=== PATIENT | female | born 1975 | race Caucasian/White ===

== ENCOUNTER 2018-05-10 16:49 | Outpatient (CLI) | payer MEDICAID ==
[2018-05-10 17:32] LABS: APPEARANCE,URINE SLIGHTLY-CLOUDY; BILIRUBIN,URINE NEGATIVE (NEGATIVE); COLOR,URINE YELLOW; GLUCOSE, URINE NEGATIVE (NEGATIVE); KETONES,URINE NEGATIVE (NEGATIVE); LEUKOCYTE ESTERASE,URINE NEGATIVE (NEGATIVE); NITRITE,URINE NEGATIVE (NEGATIVE); PROTEIN,URINE NEGATIVE (NEGATIVE); URINE SPECIFIC GRAVITY 1.009; UROBILINOGEN,URINE NEGATIVE mg/dL (<2.0)
[2018-05-10 17:50] LABS: URINE AMPHETAMINES SCREEN NEGATIVE; URINE BARBITURATES SCREEN NEGATIVE; URINE BENZODIAZEPINES SCREEN NEGATIVE; URINE COCAINE SCREEN NEGATIVE; URINE MARIJUANA (THC) SCREEN NEGATIVE; URINE METHADONE SCREEN NEGATIVE; URINE PHENCYCLIDINE SCREEN NEGATIVE
[2018-05-10 17:51] LABS: ABSOLUTE EOSINOPHILS # (AUTO) 0.1 10^3/uL (0.0-0.6); ABSOLUTE LYMPHOCYTES (AUTO) 1.6 10^3/uL (0.5-4.7); ABSOLUTE MONOCYTES (AUTO) 0.8 10^3/uL (0.1-1.4); ABSOLUTE NEUT (AUTO) 7.6 10^3/uL (1.7-8.2); BASOPHILS % (AUTO) 0.5 % (0-2); EOSINOPHILS % (AUTO) 1.3 % (0-6); HEMATOCRIT 31.3 % (36.0-47.0); HEMOGLOBIN 9.9 g/dL (12.0-15.5); LYMPHOCYTES % (AUTO) 15.8 % (13-45); MEAN CORPUSCULAR HEMOGLOBIN 20.6 pg (27.0-33.4); MEAN CORPUSCULAR HGB CONC 31.8 g/dL (32.0-36.0); MEAN CORPUSCULAR VOLUME 65 fl (80-97); PLATELET COUNT 209 10^3/uL (150-450); RED BLOOD COUNT 4.83 10^6/uL (3.72-5.28); RED CELL DISTRIBUTION WIDTH 18.9 % (11.5-14.0); SEGMENTED NEUTROPHILS % (AUTO) 74.4 % (42-78); TOTAL CELLS COUNTED % (AUTO) 100 %; WHITE BLOOD COUNT 10.3 10^3/uL (4.0-10.5)
[2018-05-10 17:58] LABS: UR PRO/CREAT RATIO RESULT 0.3 mg/mg (0.0-0.2); URINE CREATININE 44.6 mg/dL (15-278); URINE PROTEIN 12.9 mg/dL (<12)
[2018-05-10 18:13] LABS: ALANINE AMINOTRANSFERASE 23 U/L (9-52); ALBUMIN 3.3 g/dL (3.5-5.0); ALKALINE PHOSPHATASE 108 U/L (38-126); ANION GAP 11 (5-19); ASPARTATE AMINO TRANSFERASE 22 U/L (14-36); BILIRUBIN,DIRECT 0.2 mg/dL (0.0-0.4); BILIRUBIN,TOTAL 0.9 mg/dL (0.2-1.3); BLOOD UREA NITROGEN 5 mg/dL (7-20); CALCIUM 8.8 mg/dL (8.4-10.2); CARBON DIOXIDE 21 mmol/L (22-30); CHLORIDE 107 mmol/L (98-107); GLUCOSE 69 mg/dL (75-110); POTASSIUM 4.3 mmol/L (3.6-5.0); SODIUM 138.7 mmol/L (137-145); TOTAL PROTEIN 6.6 g/dL (6.3-8.2)
[2018-05-10 18:17] LABS: HYPOCHROMASIA 1+; PLATELET COMMENT ADEQUATE; TOXIC GRANULATION SLIGHT
--- NOTE | 2018-05-10 18:20 | Non Stress Test Report ---
Non Stress Test Datetime Report Generated by CPN: 05/10/2018 18:19 DEMOGRAPHIC EGA NST: 35.2 INDICATION Indication for Study: Ordered by Provider VITAL SIGNS RESP - NST: 15 MONITORING Monitor Explained: Monitor Explained; Test Explained; Patient Verbalized Understanding Monitor Explained Other: see flowsheet for vital signs Time on Monitor: 05/10/2018 17:17 Time off Monitor: 05/10/2018 17:37 NST Duration: 20 NST INTERVENTIONS NST Interventions: None Physician Notified NST: Dr. Mohr BABY A: [id number] BABY A Movement : Present Contraction Frequency : none FHR Baseline : 140 Accelerations : 15X15 Decelerations : None Variability : Moderate 6-25bpm NST Review: Meets Criteria for Reactive NST NST Review and Verified By : Regi Morelos [facility] NST Results: Reactive NST REPORT Report Trigger: Send Report
== END 2018-05-10 18:40 | disposition home or self-care (01) ==
LOC: LC 16:49
PROVIDERS: ATTEND Obstetrics & Gynecology Gynecology
PROC: 4A1HXCZ Monitoring of Products of Conception, Cardiac Rate, External Approach (ICD-10-PCS; principal; 2018-05-10)
DX: O14.93 Unspecified pre-eclampsia, third trimester (principal); O09.523 Supervision of elderly multigravida, third trimester; Z3A.35 35 weeks gestation of pregnancy
CPT/HCPCS: 59025; 80053; 80307; 81005; 82570; 83615; 84156; 84550; 85025

== ENCOUNTER 2018-05-22 04:58 | Inpatient (IN) | payer MEDICAID ==
[2018-05-21 12:37] LABS: ABSOLUTE EOSINOPHILS # (AUTO) 0.1 10^3/uL (0.0-0.6); ABSOLUTE LYMPHOCYTES (AUTO) 2.1 10^3/uL (0.5-4.7); ABSOLUTE MONOCYTES (AUTO) 0.8 10^3/uL (0.1-1.4); ABSOLUTE NEUT (AUTO) 7.7 10^3/uL (1.7-8.2); BASOPHILS % (AUTO) 0.4 % (0-2); EOSINOPHILS % (AUTO) 0.7 % (0-6); HEMATOCRIT 32.7 % (36.0-47.0); HEMOGLOBIN 10.3 g/dL (12.0-15.5); LYMPHOCYTES % (AUTO) 19.8 % (13-45); MEAN CORPUSCULAR HEMOGLOBIN 20.5 pg (27.0-33.4); MEAN CORPUSCULAR HGB CONC 31.4 g/dL (32.0-36.0); MEAN CORPUSCULAR VOLUME 65 fl (80-97); MONOCYTES % (AUTO) 7.2 % (3-13); PLATELET COUNT 224 10^3/uL (150-450); RED BLOOD COUNT 5.01 10^6/uL (3.72-5.28); RED CELL DISTRIBUTION WIDTH 19.8 % (11.5-14.0); SEGMENTED NEUTROPHILS % (AUTO) 71.9 % (42-78); TOTAL CELLS COUNTED % (AUTO) 100 %; WHITE BLOOD COUNT 10.8 10^3/uL (4.0-10.5)
[2018-05-21 12:41] LABS: APPEARANCE,URINE CLOUDY; BILIRUBIN,URINE NEGATIVE (NEGATIVE); COLOR,URINE YELLOW; GLUCOSE, URINE 150 mg/dL (NEGATIVE); KETONES,URINE TRACE mg/dL (NEGATIVE); LEUKOCYTE ESTERASE,URINE TRACE (NEGATIVE); NITRITE,URINE NEGATIVE (NEGATIVE); PROTEIN,URINE 30 mg/dL (NEGATIVE); URINE SPECIFIC GRAVITY 1.021; UROBILINOGEN,URINE NEGATIVE mg/dL (<2.0)
[2018-05-21 12:54] LABS: URINE AMPHETAMINES SCREEN NEGATIVE; URINE BARBITURATES SCREEN NEGATIVE; URINE BENZODIAZEPINES SCREEN NEGATIVE; URINE COCAINE SCREEN NEGATIVE; URINE MARIJUANA (THC) SCREEN NEGATIVE; URINE METHADONE SCREEN NEGATIVE; URINE PHENCYCLIDINE SCREEN NEGATIVE
[2018-05-22] MEDS ORDERED: LACTATED RINGERS 1000 ML IV PRN (05:00)
[2018-05-22] MEDS ORDERED: CEFAZOLIN 2 GM/D5W RTU 2 GM/50 ML RTUPB IV PRN (05:00)
[2018-05-22] MEDS ORDERED: RINGERS SOLUTION,LACTATED 1,500 ML IV PRN (05:00)
[2018-05-22] MEDS ORDERED: LIDOCAINE 0.5% INJ-PF (5 MG/ML) 50 ML SDV SUBCUT PRN (05:00)
[2018-05-22] MEDS ORDERED: AZITHROMYCIN INJ 500 MG VIAL IV ONE (08:10)
[2018-05-22] MEDS ORDERED: CEFAZOLIN 1 GM/D5W RTU 1 GM/50 ML RTUPB IV ONE (08:11)
[2018-05-22] MEDS ORDERED: FENTANYL CITRATE INJ/PF 100 MCG/2 ML AMPUL ONE (08:18)
[2018-05-22] MEDS ORDERED: OXYTOCIN 10 UNIT/ML VIAL ONE (08:18)
[2018-05-22] MEDS ORDERED: BUPIVACAINE HCL/DEX-WATER/PF 15 MG/2 ML AMPULE ONE (08:18)
[2018-05-22] MEDS ORDERED: MIDAZOLAM 2 MG/2 ML INJ ONE (08:19)
[2018-05-22] MEDS ORDERED: DIPHENHYDRAMINE HCL 50 MG/ML VIAL ONE (08:19)
[2018-05-22] MEDS ORDERED: FAMOTIDINE INJ/PF 20 MG/2 ML SDV IV ONE (08:19)
[2018-05-22] MEDS ORDERED: ACETAMINOPHEN 1,000 MG/100 ML RTUPB IV ONE (08:19)
[2018-05-22] MEDS ORDERED: EPHEDRINE SULFATE INJ 50 MG/1 ML AMPULE ONE (08:19)
[2018-05-22] MEDS ORDERED: OXYTOCIN/NORMAL SALINE 20 UNIT/1,000 ML RTUINJ ONE (08:19)
[2018-05-22] MEDS ORDERED: OXYCODONE-ACETAMINOPHEN 5-325 MG TABLET PO PRN ×2 (09:00)
[2018-05-22] MEDS ORDERED: DIPHENHYDRAMINE HCL 50 MG/ML VIAL IV PRN (09:00)
[2018-05-22] MEDS ORDERED: FENTANYL CITRATE INJ/PF 100 MCG/2 ML AMPUL IV PRN ×3 (09:00)
[2018-05-22] MEDS ORDERED: MEPERIDINE HCL/PF INJ 25 MG/1 ML DISP.SYRIN IV PRN (09:00)
[2018-05-22] MEDS ORDERED: PROMETHAZINE HCL INJ 25 MG/1 ML VIAL IV PRN ×3 (09:00→09:11)
[2018-05-22] MEDS ORDERED: MORPHINE SULFATE 10 MG/ML INJ IV PRN (09:00)
[2018-05-22] MEDS ORDERED: ACETAMINOPHEN 1,000 MG/100 ML RTUPB IV PRN (09:11)
[2018-05-22] MEDS ORDERED: OXYTOCIN/NORMAL SALINE 20 UNIT/1,000 ML RTUINJ IV PRN (09:11)
[2018-05-22] MEDS ORDERED: DIPH/PERTUSS(ACELL)/TETANUS VAC/PF 0.5 ML SYR (>=10YO) IM PRN (09:11)
[2018-05-22] MEDS ORDERED: MORPHINE SULFATE 10 MG/ML INJ IM PRN (09:11)
[2018-05-22] MEDS ORDERED: ACETAMINOPHEN 325 MG TABLET PO PRN (09:11)
[2018-05-22] MEDS ORDERED: MEASLES,MUMPS&RUBELLA VACC/PF 0.5 ML VIAL SUBCUT PRN (09:11)
[2018-05-22] MEDS ORDERED: SIMETHICONE 80 MG TAB.CHEW PO PRN (09:11)
--- NOTE | 2018-05-22 09:11 | PDOC DELIVERY SUMMARY ---
Delivery Summary - Maternal Hx : III Hx # Term Pregnancies: 3 Risk Factors: Induced HTN Ruptured Membranes: AROM Fluids: Clear - Delivery Labor: Not In Labor Heart Rate Monitoring: Done Pre-Operatively Uterine Contraction Monitoring: External Support Person Present: Yes : Scheduled Nuchal Cord: No - Medications Type of Anesthesia:: Spinal
--- NOTE | 2018-05-22 10:00 | OPERATIVE REPORT E ---
Operative Report NAME: BEST ROSARIO : 1975 AGE: 43Y DATE OF SURGERY: 05/22/2018 ROOM: 227 PREOPERATIVE DIAGNOSES: 1. IUP at 37 weeks with chronic hypertension and recommendation delivery at 37 weeks. 2. Desires sterilization. POSTOPERATIVE DIAGNOSES: 1. IUP at 37 weeks with chronic hypertension and recommendation delivery at 37 weeks. 2. Desires sterilization. PROCEDURE: Repeat low transverse , delivery of a viable female . Apgars and weight are pending. SURGEON: Kerri FISCHER M.D. ESTIMATED BLOOD LOSS: Less than 1000 mL. TISSUE REMOVED OR ALTERED: Placenta. DESCRIPTION OF PROCEDURE: The patient was placed in the supine position, rolled on her right side, prepped and draped in sterile fashion. A Pfannenstiel incision was made through an existing Pfannenstiel eschar. The excision extended through to the subcutaneous tissue and fascia with sharp dissection. Fascia was sharply divided. Rectus muscle was bluntly and sharply divided. Parietal peritoneum was entered with sharp dissection. Uterus nicked in the midline and extended bilaterally with blunt dissection. Infant was then delivered through the uterine and abdominal incision. Nose and mouth suctioned with a bulb syringe. Cord was clamped. The infant was passed from the table. The uterus was closed using 0 Vicryl running stitch and a second imbricating the first layer. Several areas of bleeding were noted and controlled with multiple figure of eight sutures of 0 Vicryl. The right fallopian tube was then banded in the mid portion using Filshie clips and banded on the left using Filshie clips. The tubes were identified through the fimbria prior to and after banding. The incision was noted and the fascia closed with 0 Vicryl and skin was closed subcu with absorbable devi. Her urine remained clear throughout the procedure. She was taken to recovery in good condition. Infant then went to nursery in good condition. DICTATING PHYSICIAN: Kerri FISCHER M.D. [id number] PHY#: [id number] ID: [id number] JOB#: [id number] ACCT: [id number] cc:Kerri FISCHER M.D. > [facility]
[2018-05-22] MEDS: OXYCODONE-ACETAMINOPHEN 5-325 MG TABLET PO PRN ×3 (12:11→22:07)
[2018-05-22] MEDS: KETOROLAC TROMETHAMINE INJ/PF 30 MG/1 ML SDV IV SCH ×2 (13:40→22:06)
[2018-05-22] MEDS ORDERED: KETOROLAC TROMETHAMINE 60 MG/2 ML SDV ONE (14:43)
[2018-05-22] MEDS ORDERED: ONDANSETRON HCL INJ/PF 4 MG/2 ML SDV ONE (14:43)
[2018-05-22] MEDS: NORMAL SALINE 1000 ML 1,000 ML IV PRN ×2 (16:30→22:07)
[2018-05-22] MEDS: DOCUSATE SODIUM 100 MG CAPSULE PO SCH ×2 (17:28)
[2018-05-22] MEDS: PRENATAL VITAMIN W DHA CAPSULE PO SCH (17:29)
[2018-05-23] MEDS: OXYCODONE-ACETAMINOPHEN 5-325 MG TABLET PO PRN ×3 (04:04→20:48)
[2018-05-23] MEDS: KETOROLAC TROMETHAMINE INJ/PF 30 MG/1 ML SDV IV SCH (06:03)
[2018-05-23 06:35] LABS: HEMATOCRIT 24.2 % (36.0-47.0); MEAN CORPUSCULAR HEMOGLOBIN 20.4 pg (27.0-33.4); MEAN CORPUSCULAR HGB CONC 31.1 g/dL (32.0-36.0); MEAN CORPUSCULAR VOLUME 66 fl (80-97); PLATELET COUNT 171 10^3/uL (150-450); RED BLOOD COUNT 3.68 10^6/uL (3.72-5.28); RED CELL DISTRIBUTION WIDTH 19.8 % (11.5-14.0); WHITE BLOOD COUNT 12.8 10^3/uL (4.0-10.5)
[2018-05-23 06:38] LABS: HEMOGLOBIN 7.5 g/dL (12.0-15.5)
[2018-05-23] MEDS: PRENATAL VITAMIN W DHA CAPSULE PO SCH (09:57)
[2018-05-23] MEDS: DOCUSATE SODIUM 100 MG CAPSULE PO SCH ×2 (09:57→17:48)
[2018-05-23] MEDS: FERROUS SULFATE 325 MG TABLET PO SCH ×2 (09:57→17:48)
[2018-05-23] MEDS ORDERED: ONDANSETRON 4 MG TAB.RAPDIS PO PRN (12:05)
[2018-05-23] MEDS: FAMOTIDINE 20 MG TABLET PO SCH ×2 (12:19→21:07)
[2018-05-23] MEDS: IBUPROFEN 800 MG TABLET PO SCH ×2 (12:57→17:48)
--- NOTE | 2018-05-23 14:58 | PDOC PROGRESS REPORT ---
Subjective-OB Progress Note for:: 05/23/18 Subjective: reports bleeding slowing, pain controlled with current meds. denies ADAMS, SOB, dizziness, near syncope. denies needs Physical Exam (OB) Vital Signs: Temp Pulse Resp BP Pulse Ox 98.0 F 79 17 136/82 H 100 05/23/18 11:51 05/23/18 11:51 05/23/18 11:51 05/23/18 11:51 05/23/18 11:51 Intake & Output 05/22/18 05/23/18 05/24/18 06:59 06:59 06:59 Intake Total 1898 Output Total 900 Balance 998 Weight 76.66 kg - Dressing Removed: No Incision: Dressing, Well Approximated - clean and intact - Abdomen Description: Soft, Round Hernia Present: No Fundal Description: Firm, Midline Fundal Height: u/u - u/2 - Abdominal Inspection: Normal Tenderness: Nontender - Extremities Calf: Normal, Nontender Objective-Diagnostic Laboratory: 05/23/18 06:02 05/23/18 06:02 WBC 12.8 H RBC 3.68 L Hgb 7.5 L D Hct 24.2 L MCV 66 L MCH 20.4 L MCHC 31.1 L RDW 19.8 H Plt Count 171 Assessment and Plan(PN) - Assessment and Plan (1) Status post repeat low transverse section Is this a current diagnosis for this admission?: Yes (2) Sterilization Is this a current diagnosis for this admission?: Yes - Time Spent with Patient Time with patient: Less than 15 minutes Medications reviewed and adjusted accordingly: Yes - Disposition Anticipated Discharge: Home Within: within 48 hours
[2018-05-24] MEDS: IBUPROFEN 800 MG TABLET PO SCH ×5 (00:12→23:59)
[2018-05-24] MEDS: OXYCODONE-ACETAMINOPHEN 5-325 MG TABLET PO PRN ×2 (05:30→19:49)
[2018-05-24 07:13] LABS: ABSOLUTE BASOPHILS # (AUTO) 0.1 10^3/uL (0.0-0.2); ABSOLUTE EOSINOPHILS # (AUTO) 0.2 10^3/uL (0.0-0.6); ABSOLUTE LYMPHOCYTES (AUTO) 1.1 10^3/uL (0.5-4.7); ABSOLUTE MONOCYTES (AUTO) 0.7 10^3/uL (0.1-1.4); ABSOLUTE NEUT (AUTO) 11.9 10^3/uL (1.7-8.2); BASOPHILS % (AUTO) 0.7 % (0-2); EOSINOPHILS % (AUTO) 1.2 % (0-6); HEMATOCRIT 23.6 % (36.0-47.0); LYMPHOCYTES % (AUTO) 7.9 % (13-45); MEAN CORPUSCULAR HEMOGLOBIN 20.2 pg (27.0-33.4); MEAN CORPUSCULAR HGB CONC 30.8 g/dL (32.0-36.0); MEAN CORPUSCULAR VOLUME 66 fl (80-97); MONOCYTES % (AUTO) 5.3 % (3-13); PLATELET COUNT 203 10^3/uL (150-450); SEGMENTED NEUTROPHILS % (AUTO) 84.9 % (42-78); TOTAL CELLS COUNTED % (AUTO) 100 %
[2018-05-24 07:30] LABS: HEMOGLOBIN 7.3 g/dL (12.0-15.5)
[2018-05-24] MEDS: DOCUSATE SODIUM 100 MG CAPSULE PO SCH ×2 (09:48→17:24)
[2018-05-24] MEDS: PRENATAL VITAMIN W DHA CAPSULE PO SCH ×2 (09:48→09:55)
[2018-05-24] MEDS: FERROUS SULFATE 325 MG TABLET PO SCH ×2 (09:48→17:24)
[2018-05-24] MEDS: FAMOTIDINE 20 MG TABLET PO SCH (09:48)
--- NOTE | 2018-05-24 10:26 | PDOC PROGRESS REPORT ---
Subjective-OB Progress Note for:: 05/24/18 Subjective: Doing well, sitting up in chair, feet swollen but better, baby in NICU, eating well, pain under control, scant lochia Physical Exam (OB) Vital Signs: Temp Pulse Resp BP Pulse Ox 98.3 F 85 18 134/89 H 100 05/24/18 08:11 05/24/18 08:11 05/24/18 08:11 05/24/18 08:11 05/24/18 08:11 Intake & Output 05/23/18 05/24/18 05/25/18 06:59 06:59 06:59 Intake Total 1898 Output Total 900 Balance 998 - PIH/Pre-Eclampsia Clonus: Negative Headache: Absent Epigastric Pain: No Visual Changes: No - Dressing Removed: No Incision: Open Closure Type: Sutures - Lochia Lochia Amount: Small 10-25 ml Lochia Color: Rubra/Red - Abdomen Description: Soft, Round Hernia Present: No Fundal Description: Firm Fundal Height: u/u - u/2 Objective-Diagnostic Laboratory: 05/24/18 06:44 05/24/18 06:44 WBC 14.0 H RBC 3.60 L Hgb 7.3 L Hct 23.6 L MCV 66 L MCH 20.2 L MCHC 30.8 L RDW 20.0 H Plt Count 203 Seg Neutrophils % 84.9 H Lymphocytes % 7.9 L Monocytes % 5.3 Eosinophils % 1.2 Basophils % 0.7 Absolute Neutrophils 11.9 H Absolute Lymphocytes 1.1 Absolute Monocytes 0.7 Absolute Eosinophils 0.2 Absolute Basophils 0.1 Assessment and Plan(PN) - Assessment and Plan (1) Gestational [-induced] hypertension without significant proteinuria , unspecified trimester Is this a current diagnosis for this admission?: Yes (2) Sterilization Is this a current diagnosis for this admission?: Yes (3) Status post repeat low transverse section Is this a current diagnosis for this admission?: Yes - Time Spent with Patient Time with patient: Less than 15 minutes Medications reviewed and adjusted accordingly: Yes - Disposition Anticipated Discharge: Home Within: within 24 hours
[2018-05-24] MEDS: NIFEDIPINE 30 MG TAB.ER.24 PO SCH (12:36)
[2018-05-25] MEDS: OXYCODONE-ACETAMINOPHEN 5-325 MG TABLET PO PRN (00:03)
[2018-05-25] MEDS: FAMOTIDINE 20 MG TABLET PO SCH ×2 (05:50→09:24)
[2018-05-25] MEDS: IBUPROFEN 800 MG TABLET PO SCH (07:27)
[2018-05-25 08:24] VITALS: BP 140/85
--- NOTE | 2018-05-25 08:32 | PDOC PROGRESS REPORT ---
Subjective-OB Progress Note for:: 05/25/18 Subjective: Doing well, sitting in chair, baby will not go home today, tolerating low H&H Physical Exam (OB) Vital Signs: Temp Pulse Resp BP Pulse Ox 98 F 89 16 140/85 H 99 05/25/18 08:24 05/25/18 08:24 05/25/18 08:24 05/25/18 08:24 05/25/18 08:24 Intake & Output 05/24/18 05/25/18 05/26/18 06:59 06:59 06:59 Intake Total 1390 Balance 1390 Weight 76.4 kg Baby 1 Female 2.466 kg - PIH/Pre-Eclampsia Clonus: Negative Headache: Absent Epigastric Pain: No Visual Changes: No - Dressing Removed: No Incision: Open Closure Type: [place] - Bilateral Tubal Ligation Dressing Removed: Yes Site: Well Approximated - Lochia Lochia Amount: Scant < 10 ml Lochia Color: Rubra/Red - Abdomen Description: Tender, Soft Hernia Present: No Fundal Description: Firm, Midline Fundal Height: u/u - u/2 Objective-Diagnostic Laboratory: 05/24/18 06:44 Assessment and Plan(PN) - Assessment and Plan (1) Gestational [-induced] hypertension without significant proteinuria , unspecified trimester Is this a current diagnosis for this admission?: Yes (2) Sterilization Is this a current diagnosis for this admission?: Yes (3) Status post repeat low transverse section Is this a current diagnosis for this admission?: Yes - Time Spent with Patient Time with patient: Less than 15 minutes Medications reviewed and adjusted accordingly: Yes - Disposition Anticipated Discharge: Home Within: Other - home today
--- NOTE | 2018-05-25 08:33 | PDOC DISCHARGE SUMMARY ---
Final Diagnosis Discharge Date: 05/25/18 - Final Diagnosis (1) Gestational [-induced] hypertension without significant proteinuria , unspecified trimester Is this a current diagnosis for this admission?: Yes (2) Sterilization Is this a current diagnosis for this admission?: Yes (3) Status post repeat low transverse section Is this a current diagnosis for this admission?: Yes Discharge Data - Discharge Medication Prescriptions: Oxycodone HCl/Acetaminophen [Percocet 5-325 mg Tablet] 2 tab PO Q4HP PRN #30 tablet PRN Reason: Ferrous Sulfate [Feosol 325 mg Tablet] 325 mg PO BID #60 tablet Ibuprofen [Motrin 800 mg Tablet] 800 mg PO Q6 #30 tablet Home Medications: Ranitidine HCl [Zantac 150 mg Tablet] 150 mg PO BID 05/21/18 Ferrous Sulfate [Feosol 325 mg Tablet] 325 mg PO BID #60 tablet 05/24/18 Ibuprofen [Motrin 800 mg Tablet] 800 mg PO Q6 #30 tablet 05/24/18 Oxycodone HCl/Acetaminophen [Percocet 5-325 mg Tablet] 2 tab PO Q4HP PRN #30 tablet 05/24/18 Vit/Dha [ Multi + Dha Capsule] 1 cap PO DAILY #0 capsule Gestational Age: 37 Reason(s) for Admission: Ceasarean Section-Repeat, PIH Procedures: NST, Ultrasound Intrapartum Procedure(s): : Low Cervical, Transverse - [place] Data Baby 1 Female Weight: 2.466 kg Home with Mother: No Complications: Yes - pneumothorax - Diagnosis Test Laboratory: Temp Pulse Resp BP Pulse Ox 98.3 F 85 18 134/89 H 100 05/24/18 08:11 05/24/18 08:11 05/24/18 08:11 05/24/18 08:11 05/24/18 08:11 05/21/18 05/21/18 05/23/18 11:40 11:45 06:02 RBC 5.01 3.68 L Hgb 10.3 L 7.5 L D Hct 32.7 L 24.2 L Urine Opiates Screen NEGATIVE 05/24/18 06:44 RBC 3.60 L Hgb 7.3 L Hct 23.6 L Urine Opiates Screen - Discharge information/Instructions Discharge Activity: Activity As Tolerated, No Lifting Over 10 Pounds, No Lifting /Push/Pulling, Non-Ambulatory Child, Pelvic Rest Discharge Diet: As Tolerated, Regular Disposition: HOME, SELF-CARE Follow up with: [facility] in: 1, Weeks
[2018-05-25] MEDS: DOCUSATE SODIUM 100 MG CAPSULE PO SCH (09:24)
[2018-05-25] MEDS: FERROUS SULFATE 325 MG TABLET PO SCH (09:24)
[2018-05-25] MEDS: NIFEDIPINE 30 MG TAB.ER.24 PO SCH (09:25)
[2018-05-25] MEDS: PRENATAL VITAMIN W DHA CAPSULE PO SCH (09:25)
== END 2018-05-25 11:54 | disposition home or self-care (01) | DRG 766 ==
LOC: 2S 04:58
PROVIDERS: ADMIT Obstetrics & Gynecology Gynecology; ATTEND Obstetrics & Gynecology Gynecology
PROC: 0UL70CZ Occlusion of Bilateral Fallopian Tubes with Extraluminal Device, Open Approach (ICD-10-PCS; 2018-05-22)
PROC: 4A1HXCZ Monitoring of Products of Conception, Cardiac Rate, External Approach (ICD-10-PCS; 2018-05-22)
PROC: 10D00Z1 Extraction of Products of Conception, Low, Open Approach (ICD-10-PCS; principal; 2018-05-22 08:00)
DX: O13.4 Gestational [pregnancy-induced] hypertension without significant proteinuria, complicating childbirth (principal); O34.211 Maternal care for low transverse scar from previous cesarean delivery; O99.02 Anemia complicating childbirth; D64.9 Anemia, unspecified; Z30.2 Encounter for sterilization; Z3A.37 37 weeks gestation of pregnancy; Z37.0 Single live birth
CPT/HCPCS: 1961; 36415; 59025; 80307; 81001; 85025; 85027; 86850; 86870; 86900; 86901; 86902; 86920; 86922; 94799; J0131; J0456; J0690; J1200; J1885; J2250; J2405; J2590; J3010; J3490; J7030; S0028; S0119

== ENCOUNTER 2018-05-25 18:35 | Outpatient (CLI) | payer MEDICAID ==
[2018-05-25 18:51] VITALS: BP 166/98
[2018-05-25] MEDS ORDERED: FUROSEMIDE INJ/PF 40 MG/4 ML SDV IV ONE (19:26)
--- NOTE | 2018-05-25 19:40 | ER Document Report ---
ED Medical Screen (RME) - General Chief Complaint: High Blood Pressure Stated Complaint: BLOOD PRESSURE ISSUE Time Seen by Provider: 05/25/18 19:21 Mode of Arrival: Ambulatory Information source: Patient Notes: G4 para 4, status post 4 days ago (Dr. Mohr) who presents to the emergency room with increased swelling to the lower extremities, dyspnea on exertion, elevated blood pressure. Patient does have a history of preeclampsia with previous which is why the occurred at 37 weeks gestation. Patient states that she had no edema at the time of the or after the in the hospital. She states that the swelling started since leaving the hospital. Patient's notes that the patient gets shortness of breath with exertion. There is been no chest pain or acute/sudden onset of shortness of breath. Patient denies headache. Patient denies abdominal pain. Patient does have some abdominal discomfort around the C- section site. TRAVEL OUTSIDE OF THE [place] IN LAST 30 DAYS: No - HPI Onset: Other - Since leaving hospital 4 days ago Onset/Duration: Gradual Quality of pain: No pain Severity: None Pain Level: Denies Associated Symptoms: Headache - Timentin headache although no headache now, Shortness of breath - Shortness of breath with exertion. denies: Chest pain Exacerbated by: Movement - Shortness of breath with movement/exertion Relieved by: Remaining still Similar symptoms previously: No Recently seen / treated by doctor: Yes - Related Data Smoking: Non-smoker Frequency of alcohol use: None Drug Abuse: None Allergies/Adverse Reactions: Sulfa (Sulfonamide Antibiotics) Allergy (Verified 05/25/18 18:35) Past Medical History - General Information source: Patient - Social History Cigarette use (# per day): No Chew tobacco use (# tins/day): No Frequency of alcohol use: None Drug Abuse: None Lives with: Family Family history: None - Past Medical History Cardiac Medical History: Reports: Hx Hypertension Denies: Hx Pulmonary Embolism, Hx Heart Murmur Pulmonary Medical History: Denies: Hx Asthma, Hx Sleep Apnea, Hx Tuberculosis Neurological Medical History: Denies: Hx Cerebrovascular Accident, Hx Seizures Endocrine Medical History: Denies: Hx Hyperthyroidism, Hx Hypothyroidism Renal/ Medical History: Reports: Hx Ovarian Cysts. Denies: Hx Kidney Stones, Hx Peritoneal Dialysis, Hx Pelvic Inflammatory Disease Malignancy Medical History: Denies: Hx Breast Cancer, Hx Cervical Cancer, Hx Ovarian Cancer GI Medical History: Reports: Hx Gastroesophageal Reflux Disease - DURING . Denies: Hx Hiatal Hernia, Hx Ulcer Musculoskeltal Medical History: Denies Hx Fibromyalgia Psychiatric Medical History: Denies: Hx Bipolar Disorder, Hx Depression, Hx Post Traumatic Stress Disorder , Hx Schizophrenia Traumatic Medical History: Denies: Hx Fractures Infectious Medical History: Denies: Hx HIV Past Surgical History: Reports: Hx Section - Immunizations Immunizations up to date: Yes History of Influenza Vaccine for 07/2017 - 12/2017 Season: No Review of Systems - Review of Systems Constitutional: denies: Chills, Fever EENT: No symptoms reported Cardiovascular: See HPI Respiratory: See HPI Gastrointestinal: No symptoms reported Genitourinary: No symptoms reported Female Genitourinary: See HPI Musculoskeletal: No symptoms reported Skin: See HPI Hematologic/Lymphatic: See HPI Neurological/Psychological: Headaches - Although not current. denies: Confusion , Dementia, Weakness, Loss of power, Paralysis, Seizure, Lost consciousness, Speech impairment, Numbness Physical Exam - Vital signs Vitals: Temp Pulse Resp BP Pulse Ox 99.4 F 95 18 166/98 H 100 05/25/18 18:48 05/25/18 18:48 05/25/18 18:48 05/25/18 18:48 05/25/18 18:48 Notes: Physical exam: GENERAL: 43-year-old female, alert and oriented 3, no acute distress. Patient' s blood pressure is elevated at 166/98 HEAD: Atraumatic, normocephalic. EYES: Pupils equal round and reactive to light, extraocular movements intact, sclera anicteric, conjunctiva are normal. ENT: TMs normal, nares patent, oropharynx clear without exudates. Moist mucous membranes. NECK: Normal range of motion, supple without obvious mass or JVD. LUNGS: Breath sounds clear to auscultation bilaterally and equal. No wheezes rales or rhonchi. HEART: Heart rate regular with 2/6 systolic murmur at the right lateral sternal border. ABDOMEN: Soft, normoactive bowel sounds. No tenderness to palpation. No guarding, no rebound. No masses appreciated. EXTREMITIES: 2-3+ pedal edema NEUROLOGICAL: Cranial nerves II through XII grossly intact. Normal speech, moving all extremities. PSYCH: Normal mood, normal affect. SKIN: Warm, Dry, normal turgor, no rashes or lesions noted. Course - Re-evaluation Re-evalutation: 05/25/18 19:37 Note: Patient has no history of murmur. However it looks like her hematocrit dropped from 32-23 while in the hospital. Will repeat the blood counts today. She does appear fluid overloaded as well. The concern here is preeclampsia. I have a low suspicion for an acute PE as the symptoms seem to have slowly progressed. The patient does have a history of preeclampsia in the past. She does have significant lower extremity edema. I have spoken to Dr. Graves who will see the patient up in labor and delivery. She is asked for an echo. I have discussed the case with Dr. Lopez (cardiology) who is agreed to read the echo today and it is been ordered. The plan is for IV Lasix, evaluation in labor and delivery, echo while in labor and delivery. Note: Patient is allergic to sulfa (she has had Bactrim for UTI in the past) and has had a rash from that. She has never had Lasix. I discussed this with Dr. Lopez and he is okay with giving the patient Lasix. - Vital Signs Vital signs: Temp Pulse Resp BP Pulse Ox 99.4 F 95 18 166/98 H 100 05/25/18 18:48 05/25/18 18:48 05/25/18 18:48 05/25/18 18:48 05/25/18 18:48 - Laboratory Result Diagrams: 05/25/18 19:43 05/25/18 19:43 - Diagnostic Test Radiology reviewed: Image reviewed, Reports reviewed - No obvious infiltrates Doctor's Discharge - Discharge Clinical Impression: Elevated blood pressure, Preeclampsia Condition: Stable Disposition: OTHER Additional Instructions: The plan is to go directly from ER triage to labor and delivery to be seen by Dr. Graves. Labs have been sent Echo has been ordered Dr. Lopez of cardiology has been contacted.
[2018-05-25 20:13] LABS: ALANINE AMINOTRANSFERASE 52 U/L (9-52); ALBUMIN 2.9 g/dL (3.5-5.0); ALKALINE PHOSPHATASE 100 U/L (38-126); ANION GAP 10 (5-19); ASPARTATE AMINO TRANSFERASE 75 U/L (14-36); BILIRUBIN,DIRECT 0.2 mg/dL (0.0-0.4); BILIRUBIN,TOTAL 0.7 mg/dL (0.2-1.3); BLOOD UREA NITROGEN 11 mg/dL (7-20); CALCIUM 8.4 mg/dL (8.4-10.2); CARBON DIOXIDE 21 mmol/L (22-30); CHLORIDE 112 mmol/L (98-107); GLUCOSE 115 mg/dL (75-110); POTASSIUM 4.1 mmol/L (3.6-5.0); SODIUM 143.2 mmol/L (137-145); TOTAL PROTEIN 6.1 g/dL (6.3-8.2)
[2018-05-25] MEDS ORDERED: NIFEDIPINE 30 MG TAB.ER.24 PO ONE ×2 (20:20→20:33)
[2018-05-25 20:22] LABS: ABSOLUTE BASOPHILS # (AUTO) 0.1 10^3/uL (0.0-0.2); ABSOLUTE EOSINOPHILS # (AUTO) 0.1 10^3/uL (0.0-0.6); ABSOLUTE LYMPHOCYTES (AUTO) 1.3 10^3/uL (0.5-4.7); ABSOLUTE MONOCYTES (AUTO) 0.6 10^3/uL (0.1-1.4); ABSOLUTE NEUT (AUTO) 10.1 10^3/uL (1.7-8.2); BASOPHILS % (AUTO) 0.6 % (0-2); EOSINOPHILS % (AUTO) 1.1 % (0-6); LYMPHOCYTES % (AUTO) 10.8 % (13-45); MEAN CORPUSCULAR HEMOGLOBIN 20.9 pg (27.0-33.4); MEAN CORPUSCULAR HGB CONC 30.7 g/dL (32.0-36.0); MEAN CORPUSCULAR VOLUME 68 fl (80-97); MONOCYTES % (AUTO) 5.1 % (3-13); PLATELET COUNT 247 10^3/uL (150-450); RED BLOOD COUNT 3.67 10^6/uL (3.72-5.28); RED CELL DISTRIBUTION WIDTH 20.1 % (11.5-14.0); SEGMENTED NEUTROPHILS % (AUTO) 82.4 % (42-78); TOTAL CELLS COUNTED % (AUTO) 100 %; WHITE BLOOD COUNT 12.2 10^3/uL (4.0-10.5)
[2018-05-25 20:27] LABS: HEMOGLOBIN 7.7 g/dL (12.0-15.5)
--- NOTE | 2018-05-25 20:30 | RADIOLOGY REPORT (SQ) ---
EXAM DESCRIPTION: CHEST 2 VIEWS COMPLETED DATE/TIME: 05/25/2018 7:59 pm REASON FOR STUDY: sob COMPARISON: None. NUMBER OF VIEWS: Two view. TECHNIQUE: Frontal and lateral radiographic views of the chest acquired. LIMITATIONS: None. FINDINGS: LUNGS AND PLEURA: Peribronchial cuffing and interstitial changes. Tiny bilateral pleural effusions, left greater than right. No consolidation or pneumothorax. MEDIASTINUM AND HILAR STRUCTURES: No masses. No contour abnormalities. HEART AND VASCULAR STRUCTURES: Heart normal in size and contour. BONES: No acute findings. HARDWARE: None in the chest. OTHER: No other significant finding. IMPRESSION: Peribronchial cuffing and interstitial changes. Tiny bilateral pleural effusions, left greater than right. No consolidation. TECHNICAL DOCUMENTATION: JOB ID: [id number] [id number] 2010 [email or web address]- All Rights Reserved Reading location - IP/workstation name: [email or web address]
[2018-05-25 20:38] LABS: APPEARANCE,URINE CLOUDY; BILIRUBIN,URINE NEGATIVE (NEGATIVE); COLOR,URINE AMBER; GLUCOSE, URINE NEGATIVE (NEGATIVE); KETONES,URINE NEGATIVE (NEGATIVE); LEUKOCYTE ESTERASE,URINE MODERATE (NEGATIVE); NITRITE,URINE NEGATIVE (NEGATIVE); PROTEIN,URINE 100 mg/dL (NEGATIVE)
[2018-05-25 20:44] LABS: URIC ACID 4.4 mg/dL (2.5-7.0)
[2018-05-25 20:56] LABS: URINE AMPHETAMINES SCREEN NEGATIVE; URINE BARBITURATES SCREEN NEGATIVE; URINE BENZODIAZEPINES SCREEN NEGATIVE; URINE COCAINE SCREEN NEGATIVE; URINE MARIJUANA (THC) SCREEN NEGATIVE; URINE METHADONE SCREEN NEGATIVE; URINE PHENCYCLIDINE SCREEN NEGATIVE
[2018-05-25 21:01] LABS: UR PRO/CREAT RATIO RESULT 0.2 mg/mg (0.0-0.2); URINE CREATININE 234.7 mg/dL (15-278); URINE PROTEIN 42.8 mg/dL (<12)
[2018-05-25] MEDS ORDERED: LABETALOL HCL INJ 20 MG/4 ML DISP.SYRIN IV ONE (21:15)
[2018-05-25] MEDS ORDERED: LABETALOL HCL INJ 200 MG/40 ML VIAL IV ONE (21:19)
[2018-05-25] MEDS ORDERED: FUROSEMIDE INJ/PF 40 MG/4 ML SDV ONE (21:24)
[2018-05-25] MEDS ORDERED: HYDRALAZINE HCL INJ/PF 20 MG/1 ML SDV ONE (21:24)
[2018-05-25] MEDS ORDERED: FUROSEMIDE INJ/PF 20 MG/2 ML SDV IV ONE (21:38)
[2018-05-25] MEDS ORDERED: HYDRALAZINE HCL INJ/PF 20 MG/1 ML SDV IV ONE (21:39)
--- NOTE | 2018-05-26 11:22 | XCELERA REPORT ---
[address] [address] Transthoracic Echocardiogram Report Name: BEST ROSARIO Age: 43 yrs Gender: Female : 1975 Patient Status: Outpatient Patient Location: Study Date: 05/25/2018 08:42 PM Procedure: A complete two-dimensional transthoracic echocardiogram was performed (2D, M-mode, spectral and color flow Doppler). The study was technically adequate with some images being suboptimal in quality. Reason For Study: sob, fluid overload Ordering Physician: CHUYITA ROMAN Performed By: Leandra Patel Interpretation Summary The left ventricular ejection fraction is within normal limits. There is normal left ventricular wall thickness. The left ventricle is grossly normal size. LV diastolic function could not be adequately assessed. Wall motion cannot be accurately commented on, but no definite regional wall motion abnormalities noted. The right ventricular systolic function is normal. The right atrium is normal in size The left atrial size is normal. There is a trace amount of mitral regurgitation There is no mitral valve stenosis. No aortic regurgitation is present. There is no aortic valve stenosis There is a mild amount of tricuspid regurgitation There is mild to moderate pulmonary hypertension by echo Right ventricular systolic pressure is estimated to be elevated at 40- 50mmHg. The aortic root is not well visualized but is probably normal size. The inferior vena cava was not well visualized Minimal pericardial effusion. MMode/2D Measurements & Calculations RVDd: 2.5 cm LVIDd: 4.7 cm FS: 37.9 % Ao root diam: 2.9 cm IVSd: 0.85 cm LVIDs: 2.9 cm EDV(Teich): 102.9 mlAo root area: 6.5 cm2 LVPWd: 0.87 cmESV(Teich): 32.9 ml EF(Teich): 68.0 % LVOT diam: 1.5 cm LVOT area: 1.7 cm2 Doppler Measurements & Calculations MV E max marlon: MV dec slope: Ao V2 max: LV V1 max P.7 cm/sec 128.9 cm/sec 4.1 mmHg MV A max marlon: 608.8 cm/sec2 Ao max PG: LV V1 max: 117.1 cm/sec MV dec time: 6.6 mmHg 100.7 cm/sec MV E/A: 1.0 0.20 sec TIFFANIE(V,D): 1.4 cm2 PA V2 max: TR max marlon: 151.4 cm/sec 310.6 cm/sec PA max P.2 mmHgTR max P.6 mmHg Left Ventricle The left ventricle is grossly normal size. There is normal left ventricular wall thickness. The left ventricular ejection fraction is within normal limits. LV diastolic function could not be adequately assessed. Wall motion cannot be accurately commented on, but no definite regional wall motion abnormalities noted. Right Ventricle The right ventricle is grossly normal size. The right ventricular systolic function is normal. Atria The right atrium is normal in size. The left atrial size is normal. Interarterial septum not well visualized and not well dopplered. Cannot comment on ASD/PFO presence. Mitral Valve The mitral valve is not well visualized. There is no mitral valve stenosis. There is a trace amount of mitral regurgitation. Aortic Valve The aortic valve is grossly normal. There is no aortic valve stenosis. No aortic regurgitation is present. Tricuspid Valve The tricuspid valve is not well visualized, but is grossly normal. There is no tricuspid stenosis. There is a mild amount of tricuspid regurgitation. There is mild to moderate pulmonary hypertension by echo. Right ventricular systolic pressure is estimated to be elevated at 40-50mmHg. Pulmonic Valve The pulmonic valve is not well visualized. Great Vessels The aortic root is not well visualized but is probably normal size. The inferior vena cava was not well visualized. Effusions Minimal pericardial effusion. : CHUYITA ROMAN > Judson Lopez
== END 2018-05-25 21:38 | disposition home or self-care (01) ==
LOC: EDSTATUS 20:02 → LC 20:04
PROVIDERS: ATTEND Obstetrics & Gynecology
DX: O14.95 Unspecified pre-eclampsia, complicating the puerperium (principal); O90.89 Other complications of the puerperium, not elsewhere classified; J90 Pleural effusion, not elsewhere classified; R06.02 Shortness of breath; Z88.2 Allergy status to sulfonamides
CPT/HCPCS: 36415; 83615; 84156; 84550; 82570; 85025; 80053; 81001; 80307; 83880; 93306; 71046; J3490 ×2; J1940 ×2; J0360

== ENCOUNTER 2018-05-25 21:54 | Emergency (ER) | payer MEDICAID ==
--- NOTE | 2018-05-25 22:14 | ER Document Report ---
ED General - General Stated Complaint: BLOOD PRESSURE PROBLEM Time Seen by Provider: 05/25/18 22:11 Mode of Arrival: Ambulatory Information source: Patient, Relative, [facility] Records Notes: G4 para 4, status post 4 days ago (Dr. Mohr) who presents to the emergency room with increased swelling to the lower extremities, dyspnea on exertion, elevated blood pressure. Patient does have a history of preeclampsia with previous which is why the occurred at 37 weeks gestation. Patient states that she had no edema at the time of the or after the in the hospital. She states that the swelling started since leaving the hospital. Patient's notes that the patient gets shortness of breath with exertion. There is been no chest pain or acute/sudden onset of shortness of breath. Patient denies headache. Patient denies abdominal pain. Patient does have some abdominal discomfort around the C- section site. TRAVEL OUTSIDE OF THE [place] IN LAST 30 DAYS: No - HPI Onset: Other - 3 days prior to arrival Onset/Duration: Sudden Quality of pain: No pain Associated symptoms: Leg swelling, Shortness of breath Exacerbated by: Movement, Walking Relieved by: Remaining still Similar symptoms previously: No Recently seen / treated by doctor: Yes - Seen by [employer] OFFICER today in labor and delivery. - Related Data Allergies/Adverse Reactions: Sulfa (Sulfonamide Antibiotics) Allergy (Verified 05/25/18 18:35) Past Medical History - General Information source: Patient, [facility] Records - Social History Smoking Status: Never Smoker Frequency of alcohol use: None Drug Abuse: None Lives with: Spouse/Significant other Family History: Reviewed & Not Pertinent Patient has suicidal ideation: No Patient has homicidal ideation: No - Past Medical History Cardiac Medical History: Reports: Hx Hypertension Denies: Hx Pulmonary Embolism, Hx Heart Murmur Pulmonary Medical History: Denies: Hx Asthma, Hx Sleep Apnea, Hx Tuberculosis Neurological Medical History: Denies: Hx Cerebrovascular Accident, Hx Seizures Endocrine Medical History: Denies: Hx Hyperthyroidism, Hx Hypothyroidism Renal/ Medical History: Reports: Hx Ovarian Cysts. Denies: Hx Kidney Stones, Hx Peritoneal Dialysis, Hx Pelvic Inflammatory Disease Malignancy Medical History: Denies: Hx Breast Cancer, Hx Cervical Cancer, Hx Ovarian Cancer GI Medical History: Reports: Hx Gastroesophageal Reflux Disease - DURING . Denies: Hx Hiatal Hernia, Hx Ulcer Musculoskeletal Medical History: Denies Hx Fibromyalgia Psychiatric Medical History: Denies: Hx Bipolar Disorder, Hx Depression, Hx Post Traumatic Stress Disorder , Hx Schizophrenia Traumatic Medical History: Denies: Hx Fractures Infectious Medical History: Denies: Hx HIV Past Surgical History: Reports: Hx Section - Immunizations Immunizations up to date: Yes Review of Systems - Review of Systems Notes: REVIEW OF SYSTEMS: CONSTITUTIONAL : Denies fever, chills, or sweats. Denies recent illness. Denies weight loss, recent hospitalizations. EENT: Denies visual changes, eye pain. Denies nasal or sinus congestion or discharge. Denies sore throat, oral lesions, difficulty swallowing. CARDIOVASCULAR: Denies chest pain. Denies palpitations. Denies lower extremity edema. RESPIRATORY: Denies cough, cold, or chest congestion. GASTROINTESTINAL: Denies abdominal pain or distention. Denies nausea, vomiting , or diarrhea. Denies blood in vomitus, stools, or per rectum. Denies black, tarry stools. Denies constipation. GENITOURINARY: Denies difficulty urinating, painful urination, frequency, blood in urine, or vaginal discharge. MUSCULOSKELETAL: Denies back or neck pain or stiffness. SKIN: Denies rash, lesions or sores. HEMATOLOGIC : Denies easy bruising or bleeding. LYMPHATIC: Denies swollen glands. NEUROLOGICAL: Denies confusion or altered mental status. Denies passing out or loss of consciousness. Denies dizziness or lightheadedness. Denies headache. Denies weakness or paralysis. Denies problems difficulty with ambulation, slurred speech. Denies sensory loss, numbness, or tingling. Denies seizures. PSYCHIATRIC: Denies anxiety or stress. Denies depression, suicidal ideation, or homicidal ideation. Denies visual or auditory hallucinations. Physical Exam - Vital signs Vitals: Resp BP Pulse Ox 20 158/102 H 100 05/25/18 22:50 05/25/18 22:50 05/25/18 22:50 - Notes Notes: PHYSICAL EXAMINATION: GENERAL: Well-appearing, well-nourished and in no acute distress. HEAD: Atraumatic, normocephalic. EYES: Pupils equal round and reactive to light, extraocular movements intact, conjunctiva are normal. ENT: Nares patent, oropharynx clear without exudates. Moist mucous membranes. NECK: Normal range of motion, supple without lymphadenopathy LUNGS: Breath sounds clear to auscultation bilaterally and equal. No wheezes rales or rhonchi. HEART: Regular rate and rhythm without murmurs ABDOMEN: Soft, nontender, nondistended abdomen. No guarding, no rebound. No masses appreciated. Female : deferred Musculoskeletal: Normal range of motion, 2+ edema. No cyanosis. NEUROLOGICAL: Cranial nerves grossly intact. Normal speech, normal gait. Normal sensory, motor exams PSYCH: Normal mood, normal affect. SKIN: Warm, Dry, normal turgor, no rashes or lesions noted. Course - Re-evaluation Re-evalutation: Chest/Abdomen CTA 05/25/18 22:14 IMPRESSION: 1. Negative for pulmonary arterial embolus 2. Mild bibasilar lung findings suggesting pulmonary edema and trace bilateral pleural effusions TECHNICAL DOCUMENTATION: Quality ID # 436: Final reports with documentation of one or more dose reduction techniques (e.g., Automated exposure control, adjustment of the mA and/or kV according to patient size, use of iterative reconstruction technique) 2010 [employer]- All Rights Reserved Laboratory 05/26/18 00:55 Troponin I 0.012 G4 para 4, status post 4 days ago (Dr. Mohr) who presents to the emergency room with increased swelling to the lower extremities, dyspnea on exertion, elevated blood pressure. Patient does have a history of preeclampsia with previous which is why the occurred at 37 weeks gestation. Patient states that she had no edema at the time of the or after the in the hospital. She states that the swelling started since leaving the hospital. Patient's notes that the patient gets shortness of breath with exertion. There is been no chest pain or acute/sudden onset of shortness of breath. Patient denies headache. Patient denies abdominal pain. Patient does have some abdominal discomfort around the C- section site. Patient was sent to labor and delivery as per our protocol for preeclampsia. She was treated with labetalol and magnesium. An echo was performed and per OB it showed a normal ejection fraction with increase pulmonary artery pressure. She was sent back down to the emergency department to rule out pulmonary embolism. CTA was obtained and negative for PE. It did show trace pleural effusion. EKG was obtained which showed sinus tachycardia. Troponin was obtained and within normal limits. I did speak to our hospitalist regarding admission and she advises transfer to a tertiary center which could provide the patient the care she needs. Patient is requesting transfer to [facility]. Patient was accepted by fuel island attendant Dr. Damian. Patient has remained stable throughout her ED course. 05/25/18 23:18 Spoke to OB contracts director who sent the patient down to rule out PE and she is requesting a medicine consult. 05/26/18 03:56 - Vital Signs Vital signs: Temp Pulse Resp BP Pulse Ox 18 148/97 H 100 05/26/18 01:31 05/26/18 01:31 05/26/18 01:31 - Diagnostic Test Radiology reviewed: Image reviewed, Reports reviewed - EKG Interpretation by Ne EKG shows normal: Sinus rhythm Rate: Tachycardia Discharge - Discharge Clinical Impression: Tachycardia, 2+ pitting edema, Status post repeat low transverse section Hypertension Qualifiers: Hypertension type: unspecified Qualified Code(s): I10 - Essential (primary) hypertension Condition: Good Disposition: [facility] Referrals: CAROLYN CUTLER MD [Primary Care Provider] - Follow up as needed
--- NOTE | 2018-05-25 23:11 | RADIOLOGY REPORT (SQ) ---
EXAM DESCRIPTION: CT CHEST ANGIOGRAPHY WITHOUT THEN WITH IV CONTRAST COMPLETED DATE/TME: 05/25/2018 22:14 CLINICAL HISTORY: 43 years, Female, sob heart failure COMPARISON: None None. TECHNIQUE: Axial images through the chest were performed after the administration of intravenous contrast using a pulmonary embolus protocol. MIPS were performed. Images stored on PACS. All CT scanners at this facility use dose modulation, iterative reconstruction, and/or weight based dosing when appropriate to reduce radiation dose to as low as reasonably achievable (ALARA). [facility]: Dose Right [facility]: CareDose [facility]: Dose Right [facility]: Teradose 4D [facility]: [employer] LIMITATIONS: None. FINDINGS: No pulmonary embolus. Normal caliber aorta. No pericardial effusion. No mediastinal lymphadenopathy. No focal lung consolidation. Mild bibasilar interlobular septal thickening suggesting edema.Trace bilateral pleural effusions, greater on the left. No pneumothorax. Patent central airway. Soft tissues are within normal limits. Visualized thyroid gland shows no significant finding No acute osseous findings. Visualized abdomen shows no acute finding. IMPRESSION: 1. Negative for pulmonary arterial embolus 2. Mild bibasilar lung findings suggesting pulmonary edema and trace bilateral pleural effusions TECHNICAL DOCUMENTATION: Quality ID # 436: Final reports with documentation of one or more dose reduction techniques (e.g., Automated exposure control, adjustment of the mA and/or kV according to patient size, use of iterative reconstruction technique) 2010 [employer]- All Rights Reserved
--- NOTE | 2018-05-26 03:06 | EKG REPORT ---
SEVERITY:- OTHERWISE NORMAL ECG - SINUS TACHYCARDIA : Confirmed by: Shari Sinclair MD 26-May-2018 03:05:02
[2018-05-26 04:34] VITALS: BP 151/93
== END 2018-05-26 04:51 | disposition short-term general hospital (02) ==
LOC: ER 21:54
DX: O14.95 Unspecified pre-eclampsia, complicating the puerperium (principal); O90.89 Other complications of the puerperium, not elsewhere classified; Z98.890 Other specified postprocedural states; R06.02 Shortness of breath; R00.0 Tachycardia, unspecified; O99.53 Diseases of the respiratory system complicating the puerperium; J90 Pleural effusion, not elsewhere classified; Z88.2 Allergy status to sulfonamides
CPT/HCPCS: 36415; 71275; 84484; 93005; 93010; 99285

== ENCOUNTER 2019-09-01 14:32 | Emergency (ER) | payer SELFPAY ==
[2019-09-01 14:41] VITALS: BP 147/93
[2019-09-01 15:15] LABS: A TYPE INFLUENZA AG NEGATIVE (NEGATIVE); B INFLUENZA AG NEGATIVE (NEGATIVE)
[2019-09-01] MEDS ORDERED: PENICILLIN G BENZATHINE 1.2 MILLION UNIT/2 ML DISP.SYRIN IM ONE (15:30)
[2019-09-01] MEDS ORDERED: DEXAMETHASONE 4 MG TABLET PO ONE (15:30)
--- NOTE | 2019-09-01 15:33 | ER Document Report ---
HPI - HPI Time Seen by Provider: 09/01/19 14:46 Pain Level: 3 Notes: Patient is an otherwise healthy 44-year-old female presenting with chief complaint of fever, chills and sore throat that started this morning. Patient reports her spouse has similar symptoms. Patient denies any nausea, vomiting or diarrhea. Patient reports no difficulty swallowing. - CONSTITUTIONAL Constitutional: REPORTS: Fever, Chills - EENT EENT: REPORTS: Sore Throat - REPRODUCTIVE Reproductive: DENIES: : Past Medical History - General Information source: Patient - Social History Smoking Status: Never Smoker Frequency of alcohol use: None Drug Abuse: None Family History: Reviewed & Not Pertinent Patient has suicidal ideation: No Patient has homicidal ideation: No - Past Medical History Cardiac Medical History: Reports: Hx Hypertension Denies: Hx Pulmonary Embolism, Hx Heart Murmur Pulmonary Medical History: Denies: Hx Asthma, Hx Sleep Apnea, Hx Tuberculosis Neurological Medical History: Denies: Hx Cerebrovascular Accident, Hx Seizures Endocrine Medical History: Denies: Hx Hyperthyroidism, Hx Hypothyroidism Renal/ Medical History: Reports: Hx Ovarian Cysts. Denies: Hx Kidney Stones, Hx Peritoneal Dialysis, Hx Pelvic Inflammatory Disease Malignancy Medical History: Denies: Hx Breast Cancer, Hx Cervical Cancer, Hx Ovarian Cancer GI Medical History: Reports: Hx Gastroesophageal Reflux Disease - DURING . Denies: Hx Hiatal Hernia, Hx Ulcer Musculoskeletal Medical History: Denies Hx Fibromyalgia Psychiatric Medical History: Denies: Hx Bipolar Disorder, Hx Depression, Hx Post Traumatic Stress Disorder, Hx Schizophrenia Traumatic Medical History: Denies: Hx Fractures Infectious Medical History: Denies: Hx HIV Past Surgical History: Reports: Hx Section - Immunizations Immunizations up to date: Yes Vertical Provider Document - CONSTITUTIONAL Notes: PHYSICAL EXAMINATION: GENERAL: Well-appearing, well-nourished and in no acute distress. HEAD: Atraumatic, normocephalic. EYES: Pupils equal round extraocular movements intact, conjunctiva are normal. ENT: Nares patent, oropharynx erythematous, bilateral tonsillar swelling with exudates noted, uvula midline, no evidence of peritonsillar abscess. NECK: Normal range of motion, mild bilateral cervical lymphadenopathy. LUNGS: No respiratory distress, lung sounds clear and equal bilaterally. Musculoskeletal: Normal range of motion NEUROLOGICAL: Normal speech, normal gait. PSYCH: Normal mood, normal affect. SKIN: Warm, Dry, normal turgor, no rashes or lesions noted. - INFECTION CONTROL TRAVEL OUTSIDE OF THE [place] IN LAST 30 DAYS: No Course - Re-evaluation Re-evalutation: Rapid strep was positive. Patient treated with Decadron and IM penicillin. Mild tachycardia noted on vital sign reassessment. Patient is stable for discharge. Patient given ED return precautions. The patient's emergency department workup and current diagnosis were explained to the patient and or family. Follow-up instructions were provided. Medications if prescribed were discussed. Instructions for when to return to the emergency department including specific worrisome symptoms were discussed with the patient and/or family. - Vital Signs Vital signs: Temp Pulse Resp BP Pulse Ox 100.3 F 124 H 18 147/93 H 99 09/01/19 14:39 09/01/19 14:39 09/01/19 14:39 09/01/19 14:39 09/01/19 14:39 Discharge - Discharge Clinical Impression: Strep pharyngitis Condition: Stable Disposition: HOME, SELF-CARE Additional Instructions: STREP THROAT: Your sore throat is due to the streptococcus germ (strep throat). Strep throat usually makes you feel quite ill with fever and aches, headache, swollen sore throat, and tender bumps under the angles of the jaw. Strep throat requires antibiotic treatment. Although the sore throat may go away by itself, complications such as rheumatic fever, kidney disease, or throat abscess can occur. We usually prescribe antibiotics by mouth. Be sure to take the medicine un til it's gone. If you stop early, the strep may come back. If you are vomiting, are severely ill, or can't remember to take pills, we can give you an antibiotic shot. Take acetaminophen or ibuprofen for pain and fever. Sip frequent clear liquids, or use popsicles or ice chips. Anesthetic sprays or lozenges may help. Make sure the air in the room is not too dry. Avoid using decongestants or antihistamines. Call the doctor if there is no improvement in three days, or if you have difficulty breathing, increasing throat pain, high fever, rash, or frequent vomiting. STEROID MEDICATION: You have been given a medicine of the cortisone/steroid class. This medication is used to control inflammation or allergy. It is usually only given for a short period of time, until the acute process subsides. There are usually no side effects from short-term use of cortisone-like medications. Some persons feel an increased sense of well-being and are not sleepy at bedtime. Long-term use of cortisone medications is best avoided, unless required for a severe condition. If your condition does not remit, or relapses after the course of corticosteroid medication, you should consult your physician. FOLLOW-UP CARE: If you have been referred to a physician for follow-up care, call the physicians office for an appointment as you were instructed or within the next two days. If you experience worsening or a significant change in your symptoms, notify the physician immediately or return to the Emergency Department at any time for re-evaluation. Your strep test was positive. You were given a dose of penicillin and Decadron here in the emergency department. Push fluids. Plenty of rest. Tylenol or ibuprofen for pain or fever. Follow-up with primary care provider if not improving over the next 2 to 3 days. Forms: Return to Work Referrals: CAROLYN CUTLER MD [LOBITO BETANCUR] - Follow up as needed
== END 2019-09-01 16:15 | disposition home or self-care (01) ==
LOC: ER 14:32
DX: J02.0 Streptococcal pharyngitis (principal); R50.9 Fever, unspecified; I10 Essential (primary) hypertension
CPT/HCPCS: 99283; 96372; 87880; 87804; J8540; J0561

== ENCOUNTER 2019-11-17 17:36 | Emergency (ER) | payer SELFPAY ==
[2019-11-17 18:10] VITALS: BP 137/82
--- NOTE | 2019-11-17 18:17 | ER Document Report ---
HPI - HPI Patient complains to provider of: Skin tag to the right chest Time Seen by Provider: 11/17/19 18:07 Onset: Other - Started oozing yesterday, bleeding today Onset/Duration: Persistent Quality of pain: Other - Under to palpation Severity: None Pain Level: Denies Context: 44-year-old female presented to ED for a skin tag to the right chest just at the bra line. She states that the bra irritates the skin tag causing it to ooze and bleed. She states she called her primary care doctor they cannot see her today. I have instructed her to please follow-up with dermatology or her primary care for removal of the skin tag. Associated Symptoms: None Exacerbated by: Denies Relieved by: Denies Similar symptoms previously: Yes Recently seen / treated by doctor: Yes - ROS ROS below otherwise negative: Yes - CONSTITUTIONAL Constitutional: DENIES: Fever, Chills - EENT EENT: DENIES: Sore Throat, Ear Pain, Nasal Drainage-Clear, Nasal Drainage- Purulent, Congestion, Eye problems - NEURO Neurology: DENIES: Headache, Weakness, Vision blurred, Dizzinesss / Vertigo - CARDIOVASCULAR Cardiovascular: DENIES: Chest pain - RESPIRATORY Respiratory: DENIES: Trouble Breathing, Coughing - GASTROINTESTINAL Gastrointestinal: DENIES: Abdominal Pain, Nausea, Patient vomiting, Diarrhea, Constipation, Black / Bloody Stools - URINARY Urinary: DENIES: Dysuria, Urgency, Frequency - REPRODUCTIVE Reproductive: DENIES: :, Postmenopausal, Abnormal bleeding / discharge - MUSCULOSKELETAL Musculoskeletal: DENIES: Extremity pain, Back Pain, Neck Pain, Swelling - DERM Skin Color: Normal Skin Problems: None - Skin tag irritated from bra Past Medical History - General Information source: Patient - Social History Smoking Status: Never Smoker Cigarette use (# per day): No Chew tobacco use (# tins/day): No Smoking Education Provided: No Frequency of alcohol use: None Drug Abuse: None Lives with: Spouse/Significant other Family History: Reviewed & Not Pertinent - Past Medical History Cardiac Medical History: Reports: Hx Hypertension Pulmonary Medical History: Reports: None EENT Medical History: Reports: None Neurological Medical History: Reports: None Endocrine Medical History: Reports: None Renal/ Medical History: Reports: Hx Ovarian Cysts GI Medical History: Reports: Hx Gastroesophageal Reflux Disease - DURING Musculoskeletal Medical History: Reports Hx Musculoskeletal Trauma Skin Medical History: Reports None Psychiatric Medical History: Reports: None - Term Traumatic Medical History: Reports: Hx Fractures Infectious Medical History: Reports: None. Denies: Hx HIV Past Surgical History: Reports: Hx Section - For , Hx Oral Surgery - Jaw surgery - Immunizations Immunizations up to date: Yes Hx Diphtheria, Pertussis, Tetanus Vaccination: Yes Vertical Provider Document - CONSTITUTIONAL Agree With Documented VS: Yes Exam Limitations: No Limitations General Appearance: WD/WN, No Apparent Distress, Mild Distress - INFECTION CONTROL TRAVEL OUTSIDE OF THE [place] IN LAST 30 DAYS: No - HEENT HEENT: Atraumatic, Normal ENT Exam, Normocephalic, PERRLA - NECK Neck: Normal Inspection, Supple, Thyroid Normal - RESPIRATORY Respiratory: Breath Sounds Normal, No Respiratory Distress, Chest Non-Tender, Other - Skin tag right chest just below the breast under the bra line - GI/ABDOMEN Gastrointestinal: Abdomen Soft, Abdomen Non-Tender, No Organomegaly, Normal Bowel Sounds - MUSCULOSKELETAL/EXTREMETIES Musculoskeletal/Extremeties: MAEW, FROM, Non-Tender - NEURO Level of Consciousness: Awake, Alert, Appropriate Motor/Sensory: No Motor Deficit, No Sensory Deficit, No Pronator Drift - DERM Integumentary: Warm, Dry, No Rash Notes: Skin tag just below the bra line irritated by the bra Course - Vital Signs Vital signs: Temp Pulse Resp BP Pulse Ox 97.7 F 77 18 137/82 H 100 11/17/19 18:09 11/17/19 18:09 11/17/19 18:09 11/17/19 18:09 11/17/19 18:09 Discharge - Discharge Clinical Impression: Skin tag right chest Condition: Stable Disposition: HOME, SELF-CARE Additional Instructions: You were seen today for skin tag just below the bra line on the right chest You need to follow-up with dermatology or your primary care doctor to have this removed if he continues to irritate you Can use bacitracin and a Band-Aid to protect the area until you have been treated by your primary care or dermatology It is not infected at this time please clean and apply bacitracin and Band-Aid to prevent the brawl from irritating the area FOLLOW-UP CARE: If you have been referred to a physician for follow-up care, call the physic ians office for an appointment as you were instructed or within the next two days. If you experience worsening or a significant change in your symptoms, notify the physician immediately or return to the Emergency Department at any time for re-evaluation. Forms: Elevated Blood Pressure Referrals: [facility] [Provider Group] - Follow up as needed VAUGHN QUINONEZ DPM [ACTIVE STAFF] - Follow up as needed
== END 2019-11-17 18:21 | disposition home or self-care (01) ==
LOC: ER 17:36
DX: L91.8 Other hypertrophic disorders of the skin (principal); I10 Essential (primary) hypertension
CPT/HCPCS: 99283